=== PATIENT | female | born 1955 | race Caucasian/White ===

== ENCOUNTER 2022-12-16 12:12 | Inpatient (IN) | payer MEDICARE, OTHER ==
[~2022-12-16] VITALS: Ht 160 cm; Wt 97.1 kg
--- NOTE | 2022-12-16 12:50 | NUR ---
PT IN BED 7 A/O X4 BREATHING EVEN AND UNLABORED. C/O HERE FOR ADMISSION TO [facility] SENT BY DR. PATRICK FOR ABCESS REMOVAL. NO FEVER OR TACHY CARDIA NOTED VITAL SIGNS WNL. DOES NOT ENDORSE PAIN. CONNCTED TO MONITOR FOR MONITORING. IN HIGH FOWLERS BED LOCKED IN LOWEST POSITION.
--- NOTE | 2022-12-16 13:01 | NUR ---
MOVE SHEET SUBMITTED.
[2022-12-16 13:14] LABS: BASOPHILS % (AUTO) 0.3 % (0.0-2.0); EOSINOPHILS % (AUTO) 0.9 % (0.0-6.0); HEMATOCRIT 37 % (33-45); HEMOGLOBIN 12.2 g/dL (11.5-14.8); LYMPHOCYTES # (AUTO) 1.6 K/uL (0.8-4.8); LYMPHOCYTES % (AUTO) 23.6 % (20.0-44.0); MEAN CORPUSCULAR HGB CONC 33 g/dl (31.0-36.0); MEAN CORPUSCULAR VOLUME 94 fL (82-100); MONOCYTES # (AUTO) 0.5 K/uL (0.1-1.30); MONOCYTES % (AUTO) 6.9 % (2.0-12.0); NEUTROPHILS # (AUTO) 4.6 K/uL (1.8-8.9); NEUTROPHILS % (AUTO) 68.3 % (43.0-81.0); PLATELET COUNT (AUTO) 190 K/uL (150-450); RED BLOOD CELL COUNT(AUTO) 3.95 MIL/uL (4.0-5.2); WHITE BLOOD COUNT (AUTO) 6.7 K/uL (4.3-11.0)
[2022-12-16 13:22] LABS: CALCIUM, SERUM 8.9 mg/dL (8.5-10.1); CREATININE 0.6 mg/dL (0.6-1.3)
[2022-12-16] MEDS ORDERED: MULT-447 PO (13:29)
[2022-12-16] MEDS ORDERED: QUET200T PO (13:29)
[2022-12-16] MEDS ORDERED: SERT25TA PO (13:29)
[2022-12-16] MEDS ORDERED: ALBU8.5H8 IH (13:29)
[2022-12-16] MEDS ORDERED: RIVA10TA PO (13:29)
[2022-12-16] MEDS ORDERED: TIOT18CA3 IH (13:29)
[2022-12-16] MEDS ORDERED: POLY17PO4 PO (13:29)
[2022-12-16] MEDS ORDERED: QUET300T2 PO (13:29)
[2022-12-16] MEDS ORDERED: FLUT1DIS IH (13:29)
[2022-12-16] MEDS ORDERED: SENN-261 PO (13:29)
[2022-12-16] MEDS ORDERED: ACET-868 PO (13:29)
[2022-12-16] MEDS ORDERED: RISP0.2515 PO (13:29)
[2022-12-16] MEDS ORDERED: ONDANSETRON HCL/PF 4 MG/2 ML VIAL IVP PRN (14:00)
[2022-12-16] MEDS ORDERED: MAG HYDROX/AL HYDROX/SIMETH 30 ML UDC PO PRN (14:00)
[2022-12-16] MEDS ORDERED: MAGNESIUM HYDROXIDE 30 ML UDC PO PRN (14:00)
[2022-12-16] MEDS ORDERED: ACETAMINOPHEN 325 MG TABLET PO PRN ×2 (14:00)
[2022-12-16] MEDS ORDERED: Z GUARD REMEDY 4 OZ OINT TP PRN (14:00)
[2022-12-16] MEDS ORDERED: DIATR MEGLU/DIATRIZOATE SODIUM 30 ML BOTTLE (GASTROGRAPHIN) ONE (14:43)
--- NOTE | 2022-12-16 14:54 | NUR ---
PT TO BE KEPT NPO UNTIL READY FOR CT.
--- NOTE | 2022-12-16 14:54 | NUR ---
PT MEDICATED WITH CONTRAST DYE WILL BE READY FOR CT IN 1-2 HOURS.
--- NOTE | 2022-12-16 15:32 | NUR ---
BED GIVEN 311-2
--- NOTE | 2022-12-16 16:35 | NUR ---
HANDOFF REPORT GIVEN TO [facility].
[2022-12-16] MEDS ORDERED: IV NS 0.9% 250 ML IV ONE (16:49)
[2022-12-16] MEDS ORDERED: IOHEXOL-300 100 ML VIAL IV ONE (16:49)
--- NOTE | 2022-12-16 16:56 | NUR ---
PT TAKEN TO CT
[2022-12-16] MEDS ORDERED: ALBUTEROL FS 2.5 MG/3 ML VIAL.NEB NEB PRN (17:00)
--- NOTE | 2022-12-16 17:45 | NUR ---
MS [employer] FIELD COORDINATOR NOTES Admitted patient via gurney from ER at 1730 accompanied by ER staff with admitting diagnosis of Abdominal wall abscess. A/O x 4, able to make needs known. No c/o pain/discomfort at this time. On room air, tolerating well. No signs of acute distress and sob. IV access in the RAC #20G, sl. Admission care done. Photo of skin issue on chart. Safety measures implemented: bed locked and in lowest position, side rails up x 2, call light and tray table within easy reach. Will continue to monitor.
--- NOTE | 2022-12-16 18:47 | NUR ---
MS RN CLOSING NOTES Pt resting in bed. A/O x 4, able to make needs known, ambulatory. No c/o pain/discomfort at this time. On room air, tolerating well. IV access in the RAC #20G, sl. Safety measures implemented: bed locked and in lowest position, side rails up x 2, call light and tray table within easy reach. Will endorse constance to maintenance technician 3rd shift.
--- NOTE | 2022-12-16 19:30 | NUR ---
noc rn opening received patient in bed, a/ox3, saturation 88% (COPD), c/o sob, patient is asking for her albuterol. RT RAJAT, made aware. patient has RAC #20g no fluids running at this time. Safety in place-- bed in lowest, locked position, call light within reach. Patient's needs attended at this time. will continue with patient's plan of care.
[2022-12-16] MEDS: BUDESONIDE RESPULE INH 0.5 MG/2 ML AMPUL.NEB IH SCH (19:48)
[2022-12-16] MEDS: ALBUTEROL FS 2.5 MG/3 ML VIAL.NEB NEB SCH (19:48)
[2022-12-16] MEDS: IPRATROPIUM NEB FS 0.5 MG/2.5 ML AMPUL.NEB NEB SCH (19:48)
[2022-12-16 20:00] VITALS: BP 134/75
[2022-12-16] MEDS: risperiDONE 0.25 MG TABLET PO SCH (21:08)
[2022-12-16] MEDS: SENNOSIDES 8.6 MG TABLET PO SCH (21:09)
[2022-12-16] MEDS: QUETIAPINE FUMARATE 100 MG TABLET PO SCH (21:09)
--- NOTE | 2022-12-16 21:14 | NUR ---
noc rn note Patient asked for her pills to be given early. Risperdal and Seroquel given at this time. And patient refused Senokot, reports having BM this am. Senokot non-administered.
[2022-12-17] MEDS: IPRATROPIUM NEB FS 0.5 MG/2.5 ML AMPUL.NEB NEB SCH ×5 (02:35→19:30)
[2022-12-17] MEDS: ALBUTEROL FS 2.5 MG/3 ML VIAL.NEB NEB SCH ×5 (02:35→19:30)
[2022-12-17] MEDS: BUDESONIDE RESPULE INH 0.5 MG/2 ML AMPUL.NEB IH SCH ×2 (05:00→16:55)
[2022-12-17 06:58] LABS: BASOPHILS % (AUTO) 0.6 % (0.0-2.0); EOSINOPHILS % (AUTO) 2.7 % (0.0-6.0); HEMATOCRIT 39 % (33-45); HEMOGLOBIN 12.7 g/dL (11.5-14.8); LYMPHOCYTES # (AUTO) 1.3 K/uL (0.8-4.8); LYMPHOCYTES % (AUTO) 24.6 % (20.0-44.0); MEAN CORPUSCULAR HGB CONC 33 g/dl (31.0-36.0); MEAN CORPUSCULAR VOLUME 93 fL (82-100); MONOCYTES # (AUTO) 0.4 K/uL (0.1-1.30); MONOCYTES % (AUTO) 7.9 % (2.0-12.0); NEUTROPHILS # (AUTO) 3.3 K/uL (1.8-8.9); NEUTROPHILS % (AUTO) 64.2 % (43.0-81.0); PLATELET COUNT (AUTO) 185 K/uL (150-450); RED BLOOD CELL COUNT(AUTO) 4.14 MIL/uL (4.0-5.2); WHITE BLOOD COUNT (AUTO) 5.2 K/uL (4.3-11.0)
[2022-12-17 07:12] LABS: CALCIUM, SERUM 9.1 mg/dL (8.5-10.1); CREATININE 0.6 mg/dL (0.6-1.3); MAGNESIUM 2.4 mg/dL (1.8-2.4); PHOSPHORUS 4.2 mg/dL (2.5-4.9); POTASSIUM 4.5 mmol/L (3.5-5.1)
--- NOTE | 2022-12-17 07:15 | NUR ---
MS RN OPENING NOTES RECEIVED PATIENT SLEEPING IN BED, A/Ox4, ABLE TO MAKE NEEDS KNOWN. ON 2L OF O2 VIA NC, NO S/S OF RESPIRATORY DISTRESS. IV ACCESS RAC #20G S/L. INTACT AND PATENT. AMBULATORY, HAS BRP. NO S/S OF PAIN OR DISCOMFORT. SKIN ISSUES: LEFT LOWER ABDOMEN ABSCESS, DRESSING IN PLACE, NO S/S OF DRAINAGE. SAFETY MEASURES IN PLACE: BED LOCKED AND IN LOWEST POSITION, HOB ELEVATED, CALL LIGHT WITHIN REACH, SIDE RAILS UPx2. WILL CONTINUE TO MONITOR.
--- NOTE | 2022-12-17 07:22 | NUR ---
noc rn closing note Patient in bed with eyes closed, easy to arouse. no s/s of apparent distress on 2lpm of o2 via nc saturating 93%. denies pain. all needs attended. scheduled medications administered. call light within reach. endorsed to adán Ness for continuity of patient care.
[2022-12-17 08:00] VITALS: BP 101/49
[2022-12-17] MEDS: MULTIVIT W/MINERALS 1 TAB TABLET PO SCH (08:22)
[2022-12-17] MEDS: POLYETHYLENE GLYCOL 3350 17 GM POWD.PACK PO SCH (08:23)
[2022-12-17] MEDS: SERTRALINE HCL 25 MG TABLET PO SCH (08:23)
[2022-12-17] MEDS ORDERED: QUETIAPINE FUMARATE 100 MG TABLET PO SCH ×2 (09:00→13:00)
[2022-12-17] MEDS: QUETIAPINE FUMARATE 100 MG TABLET PO SCH ×2 (12:57→22:02)
[2022-12-17 16:00] VITALS: BP 104/56
--- NOTE | 2022-12-17 18:43 | NUR ---
MS RN CLOSING NOTES PATIENT SLEEPING IN BED, A/Ox4, ABLE TO MAKE NEEDS KNOWN. STABLE ON ROOM AIR, HAS O2 NEEDED 2L VIA NC, NO S/S OF RESPIRATORY DISTRESS. IV ACCESS RAC #20G S/L. INTACT AND PATENT. AMBULATORY, HAS BRP. NO S/S OF PAIN OR DISCOMFORT. SKIN ISSUES: LEFT LOWER ABDOMEN ABSCESS, DRESSING IN PLACE, NO S/S OF DRAINAGE. SAFETY MEASURES MAINTAINED: BED LOCKED AND IN LOWEST POSITION, HOB ELEVATED, CALL LIGHT WITHIN REACH, SIDE RAILS UPx2. WILL CONTINUE TO MONITOR.
--- NOTE | 2022-12-17 19:30 | NUR ---
RN OPENING NOTE PATIENT ASLEEP IN ROOM. A/OX4. NO S/S OF DISTRESS, BREATHING WITHOUT DIFFICULTY ON ROOM AIR (W/ NC PRN). RAC #20 SL INTACT AND PATENT. SAFETY MEASURES IN PLACE: BED LOCKED AND AT LOWEST POSITION, RAILS UP X2, CALL VARGAS WITHIN REACH. WILL CONTINUE TO MONITOR PATIENT.
[2022-12-17 20:00] VITALS: BP 108/55
--- NOTE | 2022-12-17 20:35 | NUR ---
MS RN OPENING NOTE PATIENT IS LYING IN BED WITH HOB ELEVATED TO 45 DEGREE. SHE IS ALERT AND ORIENTED, WITH SOME EPISODES OF AGITATION. SHE IS A/O X 4. PT SHOULD BE ON 2LPM OXYGEN VIA NC, HOWEVER, PT REFUSED TO USE THE OXYGEN. INSTRUCTED THE PT TO PUT THE NC OXYGEN ON HER IF SHE IS EXPERIENCING SOB; PT VERBALIZED UNDERSTANDING. CURRENTLY, PT DOES NOT SHOW ANY S/S OF DISTRESS OR SOB. IV ACCESS IS AT HER R AC, #20G; SL. IV SITE IS PATENT AND INTACT. PT IS ABLE TO VERBALIZE HER NEEDS. PT DENIES OF HAVING PAIN OR DISCOMFORT AT THIS MOMENT. SAFETY MEASURES ARE IN PLACE: BED LOCKED AND AT LOWEST POSITION, SIDE RAILS UP X2, CALL VARGAS AND TABLE ARE WITHIN REACH. WILL CONTINUE MONITORING THE PT AND PROVIDE THE CARE PT NEEDS.
--- NOTE | 2022-12-17 20:36 | NUR ---
RN NOTE PATIENT REPORT GIVEN TO ANOTHER RN, PREETHI, FOR SWEETIE.
[2022-12-17 21:00] VITALS: BP 108/58
[2022-12-17] MEDS: SENNOSIDES 8.6 MG TABLET PO SCH ×2 (22:00→22:01)
[2022-12-17] MEDS: risperiDONE 0.25 MG TABLET PO SCH (22:02)
--- NOTE | 2022-12-17 22:14 | NUR ---
MS RN NOTE PT REFUSED MEDICATION, SENOKOT 17.2 MG, DUE AT 2200. MEDICATIONS WERE RETURNED TO [facility].
[2022-12-18] MEDS: IPRATROPIUM NEB FS 0.5 MG/2.5 ML AMPUL.NEB NEB SCH ×4 (01:30→19:32)
[2022-12-18] MEDS: ALBUTEROL FS 2.5 MG/3 ML VIAL.NEB NEB SCH ×4 (01:30→19:32)
--- NOTE | 2022-12-18 04:53 | NUR ---
MS RN NOTE PT HAS SCHEDULED MEDICATION PULMICORT RESPULES INH VIA INHALATION DUE AT 0500. THE MEDICATION IS NOT AT PT'S BEDSIDE, NOR IN HER MEDICATION BOX. ASKED THE PT WHETHER SHE KNEW WHERE HER INHALER IS, PT STATED SHE DID NOT KNOW. NOTIFIED CHARGE NURSE, GEE, THAT THIS MEDICATION IS NOT AVAILABLE AT THE UNIT. WILL CONTACT AND FOLLOW UP WITH PHARMACY IN THE AM TODAY.
[2022-12-18] MEDS: BUDESONIDE RESPULE INH 0.5 MG/2 ML AMPUL.NEB IH SCH ×3 (04:59→19:32)
--- NOTE | 2022-12-18 06:49 | NUR ---
MS RN CLOSING NOTE PATIENT IS SLEEPING IN BED, EASILY BEING AROUSED. SHE IS ALERT AND ORIENTED, WITH SOME EPISODES OF AGITATION. SHE IS A/O X 4. PT SHOULD BE ON 2LPM OXYGEN VIA NC, HOWEVER, PT REFUSED TO USE THE OXYGEN. INSTRUCTED THE PT TO PUT THE NC OXYGEN ON HER IF SHE IS EXPERIENCING SOB; PT VERBALIZED UNDERSTANDING. CURRENTLY, PT DOES NOT SHOW ANY S/S OF DISTRESS OR SOB. IV ACCESS IS AT HER R AC, #20G; SL. IV SITE IS PATENT AND INTACT. PT IS ABLE TO VERBALIZE HER NEEDS. PT DENIES OF HAVING PAIN OR DISCOMFORT AT THIS MOMENT. SAFETY MEASURES ARE IN PLACE: BED LOCKED AND AT LOWEST POSITION, SIDE RAILS UP X2, CALL VARGAS AND TABLE ARE WITHIN REACH. WILL ENDORSE NEXT SHIFT NURSE FOR CONTINUING PT CARE.
[2022-12-18 07:00] VITALS: BP 133/78
--- NOTE | 2022-12-18 07:00 | NUR ---
RN OPENING NOTE RECEIVED PATIENT ALERT AND ORIENTED X4 WITH SOME EPISODES OF AGITATION. PT SHOULD BE ON 2LPM OXYGEN VIA NC, BUT CONTINUOUS TO REFUSED TO USE THE OXYGEN. PATIENT WAS GIVEN TEACHINGS REGARDING RISK FROM OXYGEN REFUSAL AND INSTRUCTED TO PUT ON THE OXYGEN IF SHE DEVELOPS S/SX OF SOB OR DISTRESS. PATIENT VERBALIZED UNDERSTANDING. PATIENT DOES NOT HAVE ANY SOB OR DISTRESS AT THIS MOMENT. IV ACCESS IS AT HER R AC, #20G; SL. IV SITE IS PATENT AND INTACT. SAFETY MEASURES IN PLACE, BED LOCKED AND AT LOWEST POSITION, SIDE RAILS UP X2, CALL VARGAS AND TABLE ARE WITHIN REACH. WILL CONTINUE MONITOR.
[2022-12-18] MEDS: NICOTINE PATCH (21MG) 21 MG PATCH.TD24 TD SCH (08:43)
[2022-12-18] MEDS: MULTIVIT W/MINERALS 1 TAB TABLET PO SCH (08:43)
[2022-12-18] MEDS: POLYETHYLENE GLYCOL 3350 17 GM POWD.PACK PO SCH ×2 (08:43→09:00)
[2022-12-18] MEDS: SERTRALINE HCL 25 MG TABLET PO SCH (08:43)
[2022-12-18] MEDS: QUETIAPINE FUMARATE 100 MG TABLET PO SCH ×3 (08:44→21:04)
--- NOTE | 2022-12-18 12:54 | NUR ---
RN NOTE HOLLY WOUND CARE NURSE AT BEDSIDE, PATIENT REFUSING PICTURE AND WOUND CONSULT
--- NOTE | 2022-12-18 12:57 | NUR ---
WOUND CARE CONSULT: PT REFUSED ASSESSMENT AND REFUSED PHOTO OF ABDOMEN. PT STATES WILL ONLY SEE SURGICAL TEAM. PT WAS NOTED TO BE ANGRY AND IRRITABLE WHEN SPICE CLEANER (WOUND CARE NURSE) INTRODUCED SELF TO PT. DR BROWN CONSULTED PER PMD.
[2022-12-18 16:00] VITALS: BP 140/90
--- NOTE | 2022-12-18 19:15 | NUR ---
MS RN OPENING NOTE PATIENT IS LYING IN BED WITH HOB ELEVATED TO 45 DEGREE. SHE IS ALERT AND ORIENTED, WITH SOME EPISODES OF AGITATION. SHE IS A/O X 4. PT IS ON RA, TOLERATED WELL. NO S/S OF DISTRESS OR SOB. IV ACCESS IS AT HER R AC, #20G; SL. IV SITE IS PATENT AND INTACT. PT IS ABLE TO VERBALIZE HER NEEDS. PT DENIES OF HAVING PAIN OR DISCOMFORT AT THIS MOMENT. SAFETY MEASURES ARE IN PLACE: BED LOCKED AND AT LOWEST POSITION, SIDE RAILS UP X2, CALL VARGAS AND TABLE ARE WITHIN REACH. WILL CONTINUE MONITORING THE PT AND PROVIDE THE CARE PT NEEDS.
--- NOTE | 2022-12-18 19:48 | NUR ---
RN CLOSING NOTE RECEIVED PATIENT ALERT AND ORIENTED X4 WITH SOME EPISODES OF AGITATION. PT SHOULD BE ON 2LPM OXYGEN VIA NC, BUT CONTINUOUS TO REFUSED TO USE THE OXYGEN. PATIENT WAS GIVEN TEACHINGS REGARDING RISK FROM OXYGEN REFUSAL AND INSTRUCTED TO PUT ON THE OXYGEN IF SHE DEVELOPS S/SX OF SOB OR DISTRESS. PATIENT VERBALIZED UNDERSTANDING. PATIENT DOES NOT HAVE ANY SOB OR DISTRESS AT THIS MOMENT. IV ACCESS IS AT HER R AC, #20G; SL. IV SITE IS PATENT AND INTACT. SAFETY MEASURES IN PLACE, BED LOCKED AND AT LOWEST POSITION, SIDE RAILS UP X2, CALL VARGAS AND TABLE ARE WITHIN REACH. ALL MEDICATIONS GIVEN ALL SAFETY PRECAUTIONS TAKEN, PATIENT WAS REPOSITIONED EVERY TWO HOURS. REPORT GIVEN TO NIGHT NURSE FOR CONTINUING OF CARE..
[2022-12-18 20:00] VITALS: BP 132/85
[2022-12-18] MEDS: risperiDONE 0.25 MG TABLET PO SCH (21:04)
[2022-12-18] MEDS: SENNOSIDES 8.6 MG TABLET PO SCH (21:07)
--- NOTE | 2022-12-18 21:08 | NUR ---
MS RN NOTE PT REFUSED MEDICATION, SENOKOT 17.2 MG, DUE AT 2200. MEDICATIONS WERE RETURNED TO [facility].
[2022-12-19] MEDS: ALBUTEROL FS 2.5 MG/3 ML VIAL.NEB NEB SCH ×2 (01:30→07:47)
[2022-12-19] MEDS: IPRATROPIUM NEB FS 0.5 MG/2.5 ML AMPUL.NEB NEB SCH ×2 (01:30→07:46)
--- NOTE | 2022-12-19 03:00 | NUR ---
RN MS OPENING NOTES RECEIVED PATIENT IN BED, ASLEEP. ON SEMI FOWLERS POSITION. A/O X 4 NO COMPLAIN OF PAIN OR DISCOMFORT NOTED AT THIS TIME,NO CHEST PAIN OR ANY DISTRESS NOTED. PATIENT IS AMBULATORY AND CONTINENT. ON REGULAR DIET NO ASPIRATION NOTED AT THIS TIME. WITH IV ACCESS AT RAC #20G ON SL PATENT AND INTACT.KEPT BED ON LOWER LOCKED POSITION, KEPT SIDE RAILS UP X 2 ALL THE TIME, CALL LIGHT WITHIN AT REACH. WILL CONTINUE TO MONITOR FOR SWEETIE.
--- NOTE | 2022-12-19 03:23 | NUR ---
MS RN NOTE REPORT GIVEN TO MITALI RIVERA.
--- NOTE | 2022-12-19 06:29 | NUR ---
RN MS CLOSING NOTES PATIENT IS IN BED, A/O X 4 ON SITTING POSITION ABLE TO VERBALIZED CONCERNS AND NEEDS. HOOKED TO OXYGEN VIA NASAL CANNULA AT 2LPM SATURATING WELL. WITH IV ACCESS AT RIGHT AC #20G PATENT AND INTACT DRESSING CHANGED. NO PAIN OR DISCOMFORT NOTED, NO SOB OR DISTRESS AT THIS TIME. KEPT BED ON LOWER LOCKED POSITION, KEPT SIDE RAILS UP X 2 ALL THE TIME, KEPT PATIENT WARM AND COMFORTABLE. ALL DUE MEDICATIONS GIVEN AND ALL NEEDS MET. WILL ENDORSED TO NEXT SHIFT FOR SWEETIE.
[2022-12-19 07:00] VITALS: BP 144/98
--- NOTE | 2022-12-19 07:18 | NUR ---
RN OPENING NOTE RECEIVED PATIENT SITTING IN BED AWAKE, A/O X4, VERBALLY RESPONSIVE AND ABLE TO MAKE NEEDS KNOWN. ON ROOM AIR, NO SOB NOTED, BREATHING EVEN AND UNLABORED. DENIES ANY PAIN AT THIS TIME. NO SIGNS OF ACUTE DISTRESS NOTED. WITH IV ACCESS ON RIGHT AC, INTACT AND PATENT, SALINE LOCKED. SAFETY MEASURE IN PLACE, BED IN LOW AND LOCKED POSITION, SIDE RAILS UP X2, CALL LIGHT PLACED WITHIN EASY REACH. WILL CONTINUE TO MONITOR PATIENT.
[2022-12-19] MEDS: BUDESONIDE RESPULE INH 0.5 MG/2 ML AMPUL.NEB IH SCH (07:47)
[2022-12-19] MEDS: QUETIAPINE FUMARATE 100 MG TABLET PO SCH (08:40)
[2022-12-19] MEDS: SERTRALINE HCL 25 MG TABLET PO SCH (08:40)
[2022-12-19] MEDS: MULTIVIT W/MINERALS 1 TAB TABLET PO SCH (08:40)
[2022-12-19] MEDS: NICOTINE PATCH (21MG) 21 MG PATCH.TD24 TD SCH (08:40)
[2022-12-19] MEDS: POLYETHYLENE GLYCOL 3350 17 GM POWD.PACK PO SCH (08:43)
--- NOTE | 2022-12-19 10:17 | NUR ---
MANAGER LOCATION NOTE PATIENT DISCHARGE TO [facility] IN STABLE CONDITION. PATIENT REMAINS AWAKE, A/O X4, VERBALLY RESPONSIVE AND ABLE TO MAKE NEEDS KNOWN. IV ACCESS ON RIGHT AC REMOVED. NO BLEEDING NOTED. PRESSURE DRESSING APPLIED TO SITE. ALL BELONGINGS ACCOUNTED FOR, FORM SIGNED BY PATIENT. HANDOFF REPORT GIVEN TO KAMARI Louis(RN) FROM [facility]. PATIENT PICKED UP BY [facility] @[address]. CN AWARE OF DISCHARGE.
== END 2022-12-19 10:15 | DRG 607 ==
LOC: ER 12:14 → MED 16:09
PROVIDERS: ADMIT Internal Medicine; ATTEND Internal Medicine
DX: L72.3 Sebaceous cyst (principal); I11.0 Hypertensive heart disease with heart failure; I50.9 Heart failure, unspecified; J44.9 Chronic obstructive pulmonary disease, unspecified; E66.9 Obesity, unspecified; F29 Unspecified psychosis not due to a substance or known physiological condition; F25.0 Schizoaffective disorder, bipolar type; Z88.8 Allergy status to other drugs, medicaments and biological substances; Z79.51 Long term (current) use of inhaled steroids; Z79.899 Other long term (current) drug therapy; Z79.01 Long term (current) use of anticoagulants; I48.0 Paroxysmal atrial fibrillation; Z68.37 Body mass index [BMI] 37.0-37.9, adult; F17.200 Nicotine dependence, unspecified, uncomplicated; N28.1 Cyst of kidney, acquired
CPT/HCPCS: 36415; 71045-TC; 74178; 80048-TC; 83735-TC; 84100-TC; 85025-TC; 85730-TC; 87081-TC; 94799-TC; C9803; G0378; J7050; Q9963; Q9967

== ENCOUNTER 2023-12-10 18:58 | Inpatient (IN) | payer MEDICARE, OTHER ==
[~2023-12-10] VITALS: Ht 160 cm; Wt 107.5 kg
[~2023-12-10 18:58] MED LIST: ACET-868 PO; ALBU8.5H8 IH; FLUT1DIS IH; MULT-447 PO; POLY17PO4 PO; QUET200T PO; QUET300T2 PO; RISP0.2515 PO; RIVA10TA PO; SENN-261 PO; SERT25TA PO; TIOT18CA3 IH
[2023-12-10] MEDS ORDERED: QUET200T PO (19:34)
[2023-12-10] MEDS ORDERED: MIRT-119 PO (19:34)
[2023-12-10] MEDS ORDERED: RISP2TAB85 PO (19:34)
[2023-12-10] MEDS ORDERED: ZOLP5TAB2 PO (19:34)
[2023-12-10] MEDS ORDERED: FERR325T28 PO (19:34)
[2023-12-10] MEDS ORDERED: QUET400T PO (19:34)
[2023-12-10] MEDS ORDERED: CYAN-51 PO (19:34)
[2023-12-10] MEDS ORDERED: OXYB5TAB16 PO (19:34)
[2023-12-10] MEDS ORDERED: PRED5DRO24 LEFTEYE (19:34)
[2023-12-10] MEDS ORDERED: KETO5DRO83 LEFTEYE (19:34)
[2023-12-10] MEDS ORDERED: OMEP20CA15 PO (19:34)
[2023-12-10] MEDS ORDERED: ASCO-340 PO (19:34)
[2023-12-10] MEDS ORDERED: HYDR25TA4 PO (19:34)
[2023-12-10] MEDS ORDERED: LACT10SO58 PO (19:34)
[2023-12-10] MEDS ORDERED: MOME13HF4 IH (19:34)
[2023-12-10] MEDS ORDERED: NICO-760 TD (19:34)
[2023-12-10] MEDS ORDERED: MOXI3DRO13 LEFTEYE (19:34)
[2023-12-10] MEDS ORDERED: CHOL100062 PO (19:34)
[2023-12-10] MEDS ORDERED: MELA5TAB PO (19:34)
[2023-12-10] MEDS ORDERED: LORA-259 PO (19:34)
[2023-12-10] MEDS ORDERED: methylPREDNISolone SOD SUCC 125 MG/2ML VIAL ONE (19:49)
[2023-12-10] MEDS: methylPREDNISolone SOD SUCC 125 MG/2ML VIAL IV ONE (19:49)
[2023-12-10 19:50] VITALS: O2SAT 99
[2023-12-10] MEDS: ALBUTEROL FS 2.5 MG/3 ML VIAL.NEB NEB ONE (19:50)
[2023-12-10] MEDS: IPRATROPIUM NEB FS 0.5 MG/2.5 ML AMPUL.NEB NEB ONE (19:50)
[2023-12-10] MEDS ORDERED: ALBUTEROL FS 2.5 MG/3 ML VIAL.NEB ONE ×2 (19:52)
[2023-12-10] MEDS ORDERED: IPRATROPIUM NEB FS 0.5 MG/2.5 ML AMPUL.NEB ONE (19:52)
[2023-12-10 20:00] VITALS: O2SAT 99
[2023-12-10 20:10] VITALS: O2SAT 99
[2023-12-10 20:24] LABS: ALANINE AMINOTRANSFERASE 22 U/L (12-78); ALBUMIN 2.9 g/dL (3.4-5.0); ALKALINE PHOSPHATASE 132 U/L (46-116); ASPARTATE AMINOTRANSFERASE 15 U/L (15-37); BASOPHILS % (AUTO) 0.3 % (0.0-2.0); BILIRUBIN,DIRECT 0.1 mg/dL (0.0-0.2); BILIRUBIN,TOTAL 0.3 mg/dL (0.2-1.0); CALCIUM, SERUM 9.5 mg/dL (8.5-10.1); CHLORIDE 99 mmol/L (98-107); CREATININE 0.9 mg/dL (0.6-1.3); EOSINOPHILS # (AUTO) 0.1 K/uL (0.0-0.7); EOSINOPHILS % (AUTO) 2.1 % (0.0-6.0); GLUCOSE 142 mg/dL (74-106); HEMATOCRIT 38 % (33-45); HEMOGLOBIN 12.4 g/dL (11.5-14.8); LYMPHOCYTES # (AUTO) 1.6 K/uL (0.8-4.8); LYMPHOCYTES % (AUTO) 25.7 % (20.0-44.0); MEAN CORPUSCULAR HEMOGLOBIN 32 PG (26.0-33.0); MEAN CORPUSCULAR HGB CONC 33 g/dl (31.0-36.0); MEAN CORPUSCULAR VOLUME 97 fL (82-100); MONOCYTES # (AUTO) 0.6 K/uL (0.1-1.30); MONOCYTES % (AUTO) 10.5 % (2.0-12.0); NEUTROPHILS # (AUTO) 3.7 K/uL (1.8-8.9); NEUTROPHILS % (AUTO) 61.4 % (43.0-81.0); PLATELET COUNT (AUTO) 152 K/uL (150-450); RED BLOOD CELL COUNT(AUTO) 3.94 MIL/uL (4.0-5.2); RED CELL DISTRIBUTION WIDTH 14.9 % (11.5-15.0); SALICYLATE 4.5 mg/dL (2.8-20.0); TOTAL PROTEIN, SERUM 6.7 g/dL (6.4-8.2); UREA NITROGEN, BLOOD 13 mg/dL (7-18)
[2023-12-10 20:25] LABS: ACETAMINOPHEN 0 ug/ml (10-30); ALCOHOL, BLOOD < 3 mg/dL (0-10)
[2023-12-10 20:26] LABS: CARBON DIOXIDE 42 mmol/L (21-32); SODIUM SERUM 141 mmol/L (136-145)
[2023-12-10 21:02] LABS: APPEARANCE,URINE Cloudy (CLEAR); BILIRUBIN,URINE Negative (NEGATIVE); BLOOD, URINE Negative Ery/uL (NEGATIVE); COLOR,URINE YELLOW (YELLOW); KETONES,URINE Negative (NEGATIVE); LEUKOCYTE ESTERASE ,URINE Trace (NEGATIVE); NITRITE, URINE Negative (NEGATIVE); PH,URINE 7.5 (5.0-8.0); PROTEIN,URINE Negative (NEGATIVE); UGLUCOSE Negative (NEGATIVE); UROBILINOGEN,URINE 0.2 EU/dL (0.2)
[2023-12-10 21:10] LABS: AMPHETAMINE, URINE NEGATIVE (NEGATIVE); BARBITURATE, URINE NEGATIVE (NEGATIVE); BENZODIAZEPINE, URINE NEGATIVE (NEGATIVE); CANNABINOID, URINE NEGATIVE (NEGATIVE); COCCAINE, URINE NEGATIVE (NEGATIVE); OPIATE, URINE NEGATIVE (NEGATIVE); PHENCYCLIDINE SCREEN,URINE NEGATIVE (NEGATIVE)
[2023-12-10] MEDS: CEFEPIME 1 GM in IV D5W 50 ML IV SCH (21:30)
[2023-12-10] MEDS ORDERED: ONDANSETRON HCL/PF 4 MG/2 ML VIAL IVP PRN (21:30)
[2023-12-10] MEDS ORDERED: ACETAMINOPHEN 325 MG TABLET PO PRN ×2 (21:30→22:00)
[2023-12-10] MEDS ORDERED: IPRATROPIUM NEB FS 0.5 MG/2.5 ML AMPUL.NEB NEB PRN (21:30)
[2023-12-10] MEDS ORDERED: Z GUARD REMEDY 4 OZ OINT TP PRN (21:30)
[2023-12-10] MEDS ORDERED: MAGNESIUM HYDROXIDE 30 ML UDC PO PRN (21:30)
[2023-12-10] MEDS ORDERED: MAG HYDROX/AL HYDROX/SIMETH 30 ML UDC PO PRN (21:30)
[2023-12-10 21:33] LABS: ADD URINE CULTURE YES; BACTERIA,URINE Many /HPF (None Seen); RBC,URINE 0-2 /HPF (0-2)
[2023-12-10 21:34] LABS: SQUAMOUS EPITHELIAL CELL,UR Moderate /HPF (None Seen)
[2023-12-10] MEDS ORDERED: HOME MED MISCELLANEOUS XX SCH (22:00)
[2023-12-10 22:15] VITALS: BP 146/97; TEMP 97.9; O2SAT 90
[2023-12-10] MEDS ORDERED: CEFEPIME 1 GM VIAL ONE (22:44)
[2023-12-10] MEDS: MIRTAZAPINE 15 MG TABLET PO SCH (22:57)
[2023-12-10] MEDS: SENNOSIDES 8.6 MG TABLET PO SCH (22:57)
[2023-12-10 23:18] VITALS: O2SAT 86
[2023-12-10] MEDS: IPRATROPIUM NEB FS 0.5 MG/2.5 ML AMPUL.NEB NEB PRN (23:26)
[2023-12-10] MEDS: ALBUTEROL FS 2.5 MG/3 ML VIAL.NEB NEB PRN (23:26)
[2023-12-10] MEDS: QUETIAPINE FUMARATE 100 MG TABLET PO SCH (23:34)
[2023-12-10 23:46] VITALS: O2SAT 92
[2023-12-11] VITALS (13 sets, daily range): BP systolic 124–158; BP diastolic 82–105; TEMP 97.9–98.4; O2SAT 90–100
[2023-12-11] MEDS: methylPREDNISolone SOD SUCC 40 MG/ML VIAL IV SCH (05:31)
[2023-12-11] MEDS: IPRATROPIUM NEB FS 0.5 MG/2.5 ML AMPUL.NEB NEB SCH (07:31)
[2023-12-11] MEDS: FERROUS SULFATE (325 MG) 325 MG/TAB TABLET PO SCH (08:22)
[2023-12-11] MEDS: OXYBUTYNIN CHLORIDE 5 MG TABLET PO SCH (08:22)
[2023-12-11] MEDS: LACTULOSE 10 G/15 ML UDC (PYXIS) PO SCH (08:22)
[2023-12-11] MEDS: risperiDONE 1 MG TABLET PO SCH ×2 (08:22→14:06)
[2023-12-11] MEDS: MULTIVITAMINS,THERAGRAN 1 UDTAB TABLET PO SCH (08:22)
[2023-12-11] MEDS: CHOLECALCIFEROL 1,000 UNIT TABLET (VIT D3) PO SCH (08:22)
[2023-12-11] MEDS: NICOTINE PATCH (21MG) 21 MG PATCH.TD24 TD SCH (08:22)
[2023-12-11] MEDS: QUETIAPINE FUMARATE 100 MG TABLET PO SCH (08:22)
[2023-12-11] MEDS: PANTOPRAZOLE 40 MG TABLET.DR PO SCH (08:22)
[2023-12-11] MEDS: CYANOCOBALAMIN 500 MCG TABLET PO SCH (08:23)
[2023-12-11] MEDS: ASCORBIC ACID 500 MG TABLET PO SCH (08:23)
[2023-12-11] MEDS: RIVAROXABAN 10 MG TABLET PO SCH (08:23)
[2023-12-11] MEDS ORDERED: MOXIFLOXACIN OPTH 3 ML BOTTLE LEFTEYE SCH (09:00)
[2023-12-11] MEDS ORDERED: KETOROLAC EYE 0.5% 3 ML BOTTLE LEFTEYE SCH (09:00)
[2023-12-11] MEDS: LORAZEPAM INJ 2 MG/ML VIAL IV PRN (10:54)
[2023-12-11 13:25] LABS: BASOPHILS % (AUTO) 0.1 % (0.0-2.0); HEMATOCRIT 37 % (33-45); HEMOGLOBIN 12.5 g/dL (11.5-14.8); LYMPHOCYTES # (AUTO) 0.5 K/uL (0.8-4.8); MEAN CORPUSCULAR HEMOGLOBIN 33 PG (26.0-33.0); MEAN CORPUSCULAR HGB CONC 34 g/dl (31.0-36.0); MEAN CORPUSCULAR VOLUME 96 fL (82-100); MONOCYTES # (AUTO) 0.5 K/uL (0.1-1.30); MONOCYTES % (AUTO) 7.3 % (2.0-12.0); NEUTROPHILS # (AUTO) 6.1 K/uL (1.8-8.9); NEUTROPHILS % (AUTO) 85.6 % (43.0-81.0); PLATELET COUNT (AUTO) 153 K/uL (150-450); RED BLOOD CELL COUNT(AUTO) 3.84 MIL/uL (4.0-5.2); RED CELL DISTRIBUTION WIDTH 14.7 % (11.5-15.0); WHITE BLOOD COUNT (AUTO) 7.1 K/uL (4.3-11.0)
[2023-12-11 13:28] LABS: CALCIUM, SERUM 8.7 mg/dL (8.5-10.1); CREATININE 0.8 mg/dL (0.6-1.3); POTASSIUM 4.2 mmol/L (3.5-5.1)
[2023-12-11] MEDS: FUROSEMIDE 20 MG/2 ML VIAL IV ONE (14:06)
[2023-12-11] MEDS ORDERED: OMEPRAZOLE 20 MG CAPSULE.DR PO SCH (17:00)
[2023-12-11] MEDS: prednisoLONE ACET 1% OPHT DROP 5 ML BOTTLE LEFTEYE SCH (17:47)
[2023-12-11] MEDS: KETOROLAC EYE 0.5% 3 ML BOTTLE LEFTEYE SCH (17:47)
[2023-12-11] MEDS: QUETIAPINE FUMARATE 25 MG TABLET PO ONE (23:11)
[2023-12-12] VITALS (8 sets, daily range): BP systolic 130–148; BP diastolic 75–97; TEMP 98.1–99.3; O2SAT 92–98
[2023-12-12] MEDS: HYDROCHLOROTHIAZIDE 25 MG TABLET PO SCH (08:16)
[2023-12-12 08:28] LABS: BASOPHILS % (AUTO) 0.2 % (0.0-2.0); EOSINOPHILS % (AUTO) 0.6 % (0.0-6.0); HEMATOCRIT 42 % (33-45); HEMOGLOBIN 13.8 g/dL (11.5-14.8); LYMPHOCYTES # (AUTO) 0.7 K/uL (0.8-4.8); LYMPHOCYTES % (AUTO) 8.4 % (20.0-44.0); MEAN CORPUSCULAR HEMOGLOBIN 32 PG (26.0-33.0); MEAN CORPUSCULAR HGB CONC 33 g/dl (31.0-36.0); MEAN CORPUSCULAR VOLUME 97 fL (82-100); MONOCYTES # (AUTO) 0.5 K/uL (0.1-1.30); MONOCYTES % (AUTO) 5.6 % (2.0-12.0); NEUTROPHILS # (AUTO) 7.5 K/uL (1.8-8.9); NEUTROPHILS % (AUTO) 85.2 % (43.0-81.0); PLATELET COUNT (AUTO) 177 K/uL (150-450); RED BLOOD CELL COUNT(AUTO) 4.33 MIL/uL (4.0-5.2); RED CELL DISTRIBUTION WIDTH 14.3 % (11.5-15.0); WHITE BLOOD COUNT (AUTO) 8.8 K/uL (4.3-11.0)
[2023-12-12 08:43] LABS: CALCIUM, SERUM 8.9 mg/dL (8.5-10.1); CREATININE 0.6 mg/dL (0.6-1.3); MAGNESIUM 2.8 mg/dL (1.8-2.4); PHOSPHORUS 3.1 mg/dL (2.5-4.9); POTASSIUM 4.5 mmol/L (3.5-5.1)
[2023-12-12] MEDS: CEPHALEXIN MONOHYDRATE 500 MG CAPSULE PO SCH (11:08)
[2023-12-12] MEDS: TOBRAMYCIN OPHTH 5ML 5 ML BOTTLE LEFTEYE SCH (17:22)
[2023-12-12] MEDS ORDERED: QUETIAPINE FUMARATE 25 MG TABLET PO SCH (21:30)
[2023-12-12] MEDS ORDERED: QUETIAPINE FUMARATE 100 MG TABLET PO PRN (22:00)
[2023-12-12] MEDS ORDERED: diphenhydrAMINE HCL 50 MG CAPSULE ONE (22:20)
[2023-12-12] MEDS: diphenhydrAMINE HCL 50 MG CAPSULE PO PRN (22:27)
[2023-12-12] MEDS: diphenhydrAMINE HCL 50 MG/ML VIAL IV ONE (22:30)
[2023-12-13 01:56] VITALS: O2SAT 94
[2023-12-13 04:00] VITALS: BP 136/82; TEMP 98.2; O2SAT 93
[2023-12-13 05:47] VITALS: O2SAT 95
[2023-12-13 06:02] VITALS: O2SAT 96
== END 2023-12-13 07:19 | disposition left against medical advice (07) | DRG 190 ==
LOC: ER 19:22 → TELE1 21:21 → MEDSG1 12-12 10:12
PROVIDERS: ADMIT Nurse Practitioner Acute Care; ATTEND Nurse Practitioner Acute Care
DX: J44.1 Chronic obstructive pulmonary disease with (acute) exacerbation (principal); G93.41 Metabolic encephalopathy; J96.21 Acute and chronic respiratory failure with hypoxia; J15.9 Unspecified bacterial pneumonia; J96.22 Acute and chronic respiratory failure with hypercapnia; I50.30 Unspecified diastolic (congestive) heart failure; E66.2 Morbid (severe) obesity with alveolar hypoventilation; D68.59 Other primary thrombophilia; R45.851 Suicidal ideations; N39.0 Urinary tract infection, site not specified; Z68.41 Body mass index [BMI] 40.0-44.9, adult; J44.0 Chronic obstructive pulmonary disease with (acute) lower respiratory infection; I11.0 Hypertensive heart disease with heart failure; E78.5 Hyperlipidemia, unspecified; I48.0 Paroxysmal atrial fibrillation; Z79.01 Long term (current) use of anticoagulants; Z86.73 Personal history of transient ischemic attack (TIA), and cerebral infarction without residual deficits; Z74.09 Other reduced mobility; F41.9 Anxiety disorder, unspecified; F17.210 Nicotine dependence, cigarettes, uncomplicated; F19.11 Other psychoactive substance abuse, in remission; F60.3 Borderline personality disorder; Z53.29 Procedure and treatment not carried out because of patient's decision for other reasons; F29 Unspecified psychosis not due to a substance or known physiological condition; F25.0 Schizoaffective disorder, bipolar type
CPT/HCPCS: 36415; 71045-TC; 80048-TC; 80076-TC; 81001; 83735-TC; 84100-TC; 85025-TC; 87081-TC; 87086-TC; 94760-TC; 94761-TC; 94762-TC; 94799-TC; 97110-TC; 97530-TC; A4223; G0378; G0480; J0692; J1940; J2060; J2920; J2930; J7060; Q0163

== ENCOUNTER 2023-12-13 08:14 | Emergency (ER) | payer MEDICARE, OTHER ==
[~2023-12-13] VITALS: Ht 162.6 cm; Wt 104.3 kg
[~2023-12-13 08:14] MED LIST changes: +ASCO-340 PO; +CHOL100062 PO; +CYAN-51 PO; +FERR325T28 PO; -FLUT1DIS IH; +HYDR25TA4 PO; +KETO5DRO83 LEFTEYE; +LACT10SO58 PO; +LORA-259 PO; +MELA5TAB PO; +MIRT-119 PO; +MOME13HF4 IH; +MOXI3DRO13 LEFTEYE; +NICO-760 TD; +OMEP20CA15 PO; +OXYB5TAB16 PO; -POLY17PO4 PO; +PRED5DRO24 LEFTEYE; -QUET300T2 PO; +QUET400T PO; -RISP0.2515 PO; +RISP2TAB85 PO; -SERT25TA PO; +ZOLP5TAB2 PO
[2023-12-13] MEDS ORDERED: OLANZAPINE 5 MG TABLET ONE (08:38)
[2023-12-13] MEDS: OLANZAPINE ZYDIS 5 MG TAB.RAPDIS PO ONE (08:39)
[2023-12-13 08:45] LABS: BASOPHILS % (AUTO) 0.2 % (0.0-2.0); HEMATOCRIT 43 % (33-45); HEMOGLOBIN 14.2 g/dL (11.5-14.8); LYMPHOCYTES # (AUTO) 0.3 K/uL (0.8-4.8); MEAN CORPUSCULAR HEMOGLOBIN 31 PG (26.0-33.0); MEAN CORPUSCULAR HGB CONC 33 g/dl (31.0-36.0); MEAN CORPUSCULAR VOLUME 96 fL (82-100); MONOCYTES # (AUTO) 0.4 K/uL (0.1-1.30); NEUTROPHILS % (AUTO) 91.8 % (43.0-81.0); PLATELET COUNT (AUTO) 168 K/uL (150-450); RED BLOOD CELL COUNT(AUTO) 4.51 MIL/uL (4.0-5.2); RED CELL DISTRIBUTION WIDTH 14.5 % (11.5-15.0); WHITE BLOOD COUNT (AUTO) 8.7 K/uL (4.3-11.0)
[2023-12-13 09:07] LABS: CALCIUM, SERUM 9.4 mg/dL (8.5-10.1); CARBON DIOXIDE 36 mmol/L (21-32); CHLORIDE 99 mmol/L (98-107); CREATININE 0.8 mg/dL (0.6-1.3); GLUCOSE 148 mg/dL (74-106); POTASSIUM 3.9 mmol/L (3.5-5.1); SODIUM SERUM 141 mmol/L (136-145); UREA NITROGEN, BLOOD 18 mg/dL (7-18)
[2023-12-13] MEDS: NICOTINE PATCH (7MG) 7 MG PATCH.TD24 TD STA (09:07)
[2023-12-13 09:28] LABS: ALANINE AMINOTRANSFERASE 17 U/L (12-78); ALKALINE PHOSPHATASE 140 U/L (46-116); ASPARTATE AMINOTRANSFERASE 15 U/L (15-37); BILIRUBIN,DIRECT 0.2 mg/dL (0.0-0.2); BILIRUBIN,TOTAL 0.5 mg/dL (0.2-1.0); TOTAL PROTEIN, SERUM 7.6 g/dL (6.4-8.2)
[2023-12-13 09:30] LABS: ACETAMINOPHEN <10 ug/ml (10-30); ALBUMIN 3.5 g/dL (3.4-5.0)
[2023-12-13 09:31] LABS: SALICYLATE 4.9 mg/dL (2.8-20.0)
[2023-12-13] MEDS ORDERED: risperiDONE 1 MG TABLET ONE (09:42)
[2023-12-13] MEDS: risperiDONE 0.25 MG TABLET PO STA (09:48)
[2023-12-13] MEDS ORDERED: ZIPRASIDONE 20 MG CAPSULE PO SCH (10:00)
[2023-12-13] MEDS ORDERED: ZIPRASIDONE MESYLATE 20 MG/VIAL VIAL IM ONE (10:04)
[2023-12-13 10:10] LABS: APPEARANCE,URINE CLOUDY (CLEAR); BILIRUBIN,URINE 1+ (NEGATIVE); BLOOD, URINE NEGATIVE Ery/uL (NEGATIVE); COLOR,URINE YELLOW (YELLOW); KETONES,URINE TRACE mg/dL (NEGATIVE); LEUKOCYTE ESTERASE ,URINE NEGATIVE (NEGATIVE); NITRITE, URINE NEGATIVE (NEGATIVE); PROTEIN,URINE TRACE mg/dl (NEGATIVE); UGLUCOSE NEGATIVE (NEGATIVE)
[2023-12-13] MEDS: ZIPRASIDONE 20 MG CAPSULE PO ONE (10:12)
[2023-12-13 11:37] LABS: ADD URINE CULTURE YES; BACTERIA,URINE 4+ /HPF (None Seen); MUCUS,URINE Few /LPF (None Seen); RBC,URINE 0-2 /HPF (0-2); WBC,URINE 0-2 /HPF (0-3)
[2023-12-13 11:38] LABS: TRIPLE PHOSPHATE CRYSTAL,UR Moderate /HPF (None Seen)
[2023-12-13 11:49] LABS: AMPHETAMINE, URINE NEGATIVE (NEGATIVE); BARBITURATE, URINE NEGATIVE (NEGATIVE); BENZODIAZEPINE, URINE NEGATIVE (NEGATIVE); CANNABINOID, URINE NEGATIVE (NEGATIVE); COCCAINE, URINE NEGATIVE (NEGATIVE); OPIATE, URINE NEGATIVE (NEGATIVE); PHENCYCLIDINE SCREEN,URINE NEGATIVE (NEGATIVE)
[2023-12-13 12:49] VITALS: BP 110/82; TEMP 98.5; O2SAT 93
[2023-12-13 14:49] LABS: ALCOHOL, BLOOD < 3 mg/dL (0-10)
== END 2023-12-13 12:49 ==
LOC: ER 08:14
DX: R44.0 Auditory hallucinations (principal); I11.0 Hypertensive heart disease with heart failure; I50.9 Heart failure, unspecified; J44.89 Other specified chronic obstructive pulmonary disease; Z86.79 Personal history of other diseases of the circulatory system; Z88.8 Allergy status to other drugs, medicaments and biological substances; Z79.899 Other long term (current) drug therapy
CPT/HCPCS: 36415; 80048-TC; 80076-TC; 81001; 85025-TC; G0480; J3486